=== PATIENT | male | born 1970 | race African-American/Black ===

== ENCOUNTER 2021-04-11 03:02 | Observation (INO) ==
[2021-04-11] MEDS ORDERED: ONDANSETRON 4 MG/2 ML VIAL IV PRN (05:32)
[2021-04-11] MEDS ORDERED: ACETAMINOPHEN 325 MG TABLET PO PRN (05:32)
[2021-04-11] MEDS ORDERED: DOCUSATE SODIUM 100 MG CAPSULE PO PRN (05:32)
[2021-04-11] MEDS ORDERED: DEXTROSE 50% 25 GM/50 ML VIAL IV PRN (05:32)
[2021-04-11] MEDS ORDERED: GLUCAGON 1 MG VIAL IM PRN (05:32)
[2021-04-11] MEDS ORDERED: hydrALAZINE 20 MG/1 ML VIAL IV PRN (05:32)
[2021-04-11] MEDS ORDERED: NITROGLYCERIN DRIP 50 MG/250 ML BOTTLE IV PRN (05:59)
[2021-04-11 06:06] LABS: Basophils % 0.3 % (0.0-0.8); Eosinophils # 0.1 10*3/uL (0.0-0.87); Eosinophils % 0.8 % (0.00-10.9); Hematocrit 41.4 VOL% (42.0-52.0); Hemoglobin 13.3 GM/DL (14.0-18.0); Immature Granulocytes % 0.3 %; Immature Granulocytes Absolute 0.02 #; Lymphocytes # 1.6 10*3/uL (1.4-4.0); Lymphocytes % 20.2 % (21.2-54.2); Mean Corpuscular HGB Conc 32.1 GM/DL (32-36); Mean Platelet Volume 9.2 FL (9.6-12.0); Monocytes % 9.2 % (1.7-12.7); Neutrophils % 69.2 % (38.7-73.9); Platelet Count 226 T/CUMM (130-400); Red Blood Count 4.18 MC/CUMM (3.8-5.5); Red Cell Distribution Width 13.8 % (9.3-17.3); White Blood Count 7.9 T/CUMM (4-12)
[2021-04-11 06:16] LABS: INR 1.1; PT Patient Result 12.5 SECS (10.5-12.0)
[2021-04-11 06:23] LABS: Albumin 3.1 G/DL (3.4-5.0); Bilirubin,Total 0.6 MG/DL (0.2-1.0); Calcium 9.3 MG/DL (8.5-10.1); Osmolality,Calculated 277.7 MOS/KG (273-304); Potassium 4.1 MMOL/L (3.5-5.1)
[2021-04-11 06:32] LABS: Risk Ratio 4.63; Thyroid Stimulating Hormone 1.58 uIU/ml (0.358-3.74)
[2021-04-11] MEDS ORDERED: cloNIDine 0.1 MG TABLET PO PRN (07:49)
[2021-04-11] MEDS: FUROSEMIDE 40 MG/4 ML VIAL IV SCH ×2 (08:38→16:36)
[2021-04-11] MEDS: ASPIRIN 325 MG TABLET PO SCH (08:38)
[2021-04-11] MEDS: carvediloL 25 MG TABLET PO SCH ×2 (08:39→20:24)
[2021-04-11] MEDS: amLODIPine 10 MG TABLET PO SCH (08:39)
[2021-04-11] MEDS: AMIODARONE 200 MG TABLET PO SCH (08:39)
[2021-04-11] MEDS: SACUBITRIL/VALSARTAN 49-51 MG TABLET PO SCH ×2 (08:40→20:24)
[2021-04-11] MEDS ORDERED: WARFARIN 7.5 MG TABLET PO SCH (09:00)
[2021-04-11] MEDS ORDERED: METOPROLOL TARTRATE 25 MG TABLET PO SCH (09:00)
[2021-04-12 04:37] LABS: Basophils % 0.4 % (0.0-0.8); Eosinophils # 0.1 10*3/uL (0.0-0.87); Eosinophils % 1.3 % (0.00-10.9); Hematocrit 42.2 VOL% (42.0-52.0); Hemoglobin 14.1 GM/DL (14.0-18.0); Immature Granulocytes % 0.4 %; Immature Granulocytes Absolute 0.03 #; Lymphocytes # 1.9 10*3/uL (1.4-4.0); Lymphocytes % 25.6 % (21.2-54.2); Mean Corpuscular HGB Conc 33.4 GM/DL (32-36); Mean Corpuscular Volume 95.5 FL (87-102); Mean Platelet Volume 9.4 FL (9.6-12.0); Monocytes % 11.7 % (1.7-12.7); Neutrophils % 60.6 % (38.7-73.9); Platelet Count 227 T/CUMM (130-400); Red Blood Count 4.42 MC/CUMM (3.8-5.5); Red Cell Distribution Width 13.6 % (9.3-17.3); White Blood Count 7.4 T/CUMM (4-12)
[2021-04-12 04:53] LABS: Osmolality,Calculated 276.7 MOS/KG (273-304); Potassium 3.6 MMOL/L (3.5-5.1)
[2021-04-12] MEDS: amLODIPine 10 MG TABLET PO SCH (09:05)
[2021-04-12] MEDS: FUROSEMIDE 40 MG/4 ML VIAL IV SCH (09:05)
[2021-04-12] MEDS: carvediloL 25 MG TABLET PO SCH (09:05)
[2021-04-12] MEDS: AMIODARONE 200 MG TABLET PO SCH (09:06)
[2021-04-12] MEDS: ASPIRIN 325 MG TABLET PO SCH (09:06)
[2021-04-12] MEDS: SACUBITRIL/VALSARTAN 49-51 MG TABLET PO SCH (09:06)
[2021-04-12 09:33] LABS: INR 1.2; PT Patient Result 13.2 SECS (10.5-12.0)
[2021-04-12 12:01] VITALS: BP 130/84
== END 2021-04-12 16:04 | disposition home or self-care (01) ==
LOC: SUATTDRO 04:27 → INTOOBSV 04:27 → N.ICU 04:27 → N.TELEN 10:51
PROVIDERS: ADMIT Internal Medicine; ATTEND Internal Medicine

== ENCOUNTER 2021-06-06 14:31 | Inpatient (IN) ==
[2021-06-06 15:15] LABS: ABG Base Excess 1.6 MMOL/L (-2.5-2.5); ABG HCO3 25.6 MMOL/L (20-26); ABG Oxygen Saturation 87.7 % (95-100); ABG PCO2 43.1 MM HG (35-48); ABG TCO2 23.2 MMOL/L (23-27)
[2021-06-06] MEDS ORDERED: ONDANSETRON 4 MG/2 ML VIAL IV PRN (15:19)
[2021-06-06] MEDS ORDERED: ALBUTEROL 2.5 MG/3 ML NEB RESP TX PRN (15:19)
[2021-06-06] MEDS ORDERED: MEROPENEM 500 MG in SODIUM CHLORIDE 0.9% 100 ML IV ONE (15:25)
[2021-06-06] MEDS ORDERED: ROCURONIUM 100 MG/10 ML VIAL IV ONE (15:59)
[2021-06-06] MEDS ORDERED: AMIODARONE 150 MG/3 ML VIAL IV ONE (16:04)
[2021-06-06] MEDS ORDERED: EPINEPHrine 1 MG/10 ML SYRINGE IV ONE (16:04)
[2021-06-06] MEDS ORDERED: SODIUM BICARBONATE 50 MEQ/50 ML SYRINGE IV ONE (16:04)
[2021-06-06 18:47] VITALS: BP 113/36
[2021-06-06] MEDS ORDERED: ALBUTEROL/IPRATROPIUM 3 ML NEB RESP TX SCH (19:00)
== END 2021-06-06 16:13 | disposition expired | DRG 208 ==
LOC: EDUNIT# → EDBD → N.ED 14:31 → N.EDINP 15:19
PROVIDERS: ADMIT Internal Medicine; ATTEND Internal Medicine